=== PATIENT | male | born 1965 | race Caucasian/White ===

== ENCOUNTER 2024-07-10 22:02 | Emergency (ER) | payer OTHER, SELFPAY ==
--- NOTE | 2024-07-10 22:00 | DI.CT_ITS ---
Exam(s) CT THORAX ABDOMEN CTA EXAM: CT THORAX ABDOMEN CTA CLINICAL HISTORY: sharp CP radiating to back ?dissection ?pancreatit. TECHNIQUE: Imaging Protocol: Axial computed tomography images with coronal and sagittal reformatted images were created and reviewed CONTRAST MATERIAL: Intravenous: Omnipaque 350 Contrast volume:100 ml Oral: None COMPARISON: No exams were available for comparison FINDINGS: CHEST: AORTA: Diameter of the ascending thoracic aorta is upper normal. There is no evidence of aortic diss ection nor pericardial effusion. Mild coronary artery calcification noted. Incidentally noted is in dependent origin of the left vertebral artery off the aortic arch instead of typical origin off the l eft subclavian artery. The diameter of the abdominal aorta is within normal limits. Also no evidenc e of dissection in the abdominal aorta.. Partially included common iliac arteries exhibit no dissect ion flaps. No significant stenosis in the renal arteries nor in the celiac and superior mesenteric a rteries. Inferior mesenteric artery is patent. LUNGS: There is a small nodular density measuring 4 mm associated with the most superior aspect of th e left major fissure. A small 2 millimeter benign-appearing fissure related nodule on the left side is also noted.. On the right side there is a small nodular infiltrate measuring 6 mm in the right up per lobe noted and another similar size nodular infiltrate in the superior segment of the right lower lobe. Another is seen in the right middle lobe anteriorly. There are no pleural effusions. MEDIASTINUM: There is no hilar nor mediastinal adenopathy. CARDIAC: Heart size is normal. There is no pericardial effusion. Mild coronary artery calcification noted. ABDOMEN There is no ascites. No ischemic appearing bowel loops. LIVER: There are no obvious focal hepatic lesions nor dilatation of intrahepatic ducts. GALLBLADDER/BILIARY: No obvious gallbladder pathology. CBD is not dilated. PANCREAS: Pancreatic tail is slightly prominent and appears edematous. SPLEEN: Spleen size is upper normal. Spleen enhances heterogeneously given the arterial phase inject ion. However, there does appear to be some streaking in the fat around the inferior half of the sple en. In addition, there is some confluent hypodensity in the inferior aspect of the spleen in this re gion. Cannot assess for thrombosis of the splenic vein as this is an arterial phase only study. ADRENALS: There are no significant adrenal masses. KIDNEYS: No cysts evident. No calculi nor hydronephrosis. No solid renal masses. ABDOMINAL AORTA: The abdominal aorta is not enlarged. LYMPH NODES: There is no retroperitoneal nor para-aortic adenopathy. No obvious mesenteric masses. ABDOMINAL WALL: No evidence of significant anterior abdominal wall hernia. GI: There is no evidence of bowel obstruction. No free air. OSSEOUS: No significant osseous lesions. IMPRESSION: 1. No evidence of aortic dissection nor pericardial effusion. The ascending thoracic aorta diameter is upper normal 2. Abnormally hypodense pancreatic tail with surrounding fat stranding as well as possible involvemen t of the adjacent spleen. Suspect pancreatitis. Close follow-up recommended. Please note that this was an arterial phase only study (as requested) and us further conventional contrast infused CT scan is warranted, given the above findings.. 3. Please note the pelvis was not scanned on this study. 4. RADIATION DOSE DELIVERED: 520.65mGy.cm Total DLP DATA REPOSITORY: All CT scans at this facility are submitted to the National Radiology Data Registry (NRDR) Dose Index Registry (DIR) with the [employer] (A[employer]). RADIATION OPTIMIZATION: All CT scans at this facility use at least one of these dose optimization te chniques: automated exposure control; mA and/or kV adjustment per patient size (includes targeted exa ms where dose is matched to clinical indication); or iterative reconstruction.
--- NOTE | 2024-07-10 22:00 | RT.EKG_ITS ---
APPROVED REPORT Exam: Resting ECG Reason for Exam: chest pain Patient Location: E HR:52 bpm ECG Measurements Heart Rate 52 AXIS ME 150 P 55 QRSd 106 QRS -9 QT 452 T 16 QTc 421 Conclusion Sinus bradycardia...rate< 60 Probable left atrial enlargement...P >50mS, <-0.10mV V1 appropriate intervals no ST segment or T wave abnormalities to suggest occlusive IA
[2024-07-10 22:05] VITALS: PULSE 50; RESP 18; O2SAT 100
[2024-07-10 22:11] VITALS: BP 178/96; PULSE 47; PULSE 50; RESP 16; O2SAT 100
[2024-07-10 22:12] VITALS: BP 178/96; RESP 18; O2SAT 100
[2024-07-10 22:16] VITALS: BP 184/105; PULSE 47; RESP 15
[2024-07-10 22:25] LABS: BE (Venous) 3 mmol/L (-2-3); HCO3 (Venous) 28 mmol/L (23-28); Lactate 1.8 mmol/L (0.6-1.4); O2 Sat (Venous) 62 %; TCO2 (Venous) 25 mmol/L (24-29); pCO2 (Venous) 44 mmHg (41-51); pH (Venous) 7.41 (7.31-7.41); pO2 (Venous) 33 mmHg
[2024-07-10 22:26] LABS: Abs Immature Grans 0.03 10^3/uL (0.0-0.06); Absolute Basophil Count 0.11 10^3/uL (0.0-0.2); Absolute Eosinophil Count 0.63 10^3/uL (0.0-0.7); Absolute Lymphocyte Count 2.27 10^3/uL (1.2-3.4); Absolute Monocyte Count 1.28 10^3/uL (0.1-0.8); Absolute Neutrophil Count 8.23 10^3/uL (1.2-6.7); Basophils % 0.9 %; HCT 40.1 % (40.0-50.0); HGB 12.9 g/dL (13.5-17.5); Immature Grans % 0.2 %; Lymphocytes % 18.1 %; MCH 27.3 pg (27.0-33.0); MCHC 32.2 % (32.0-36.0); MCV 85 fL (80-95); Monocytes % 10.2 %; Neutrophils % 65.6 %; Platelet Count 186 10^3/uL (130-400); RBC 4.73 10^6/uL (4.36-5.78); RDW 13.8 % (11.8-14.1); RDW-SD 42.6 fL; WBC 12.55 10^3/uL (4.4-10.8)
[2024-07-10] MEDS: fentaNYL 100 MCG/2 ML VIAL 75 MCG IVP (22:28)
[2024-07-10] MEDS: ACETAMINOPHEN 1,000 MG/100 ML BAG 400 MG IVPB (22:28)
[2024-07-10] MEDS: Ondansetron 4 MG/2 ML VIAL IVP (22:28)
[2024-07-10] MEDS: Normal Saline - Diluent 50 ML VIAL IJ (22:35)
[2024-07-10] MEDS: Omnipaque 350 MG/ML 100 ML BTL IJ (22:36)
[2024-07-10 22:49] LABS: ALT 65 U/L (16-63); AST 47 U/L (15-37); Albumin 3.2 g/dL (3.4-5.0); Alkaline Phosphatase 298 U/L (46-116); Anion Gap 7.6 mmol/L (3-11); BUN 12 mg/dL (7-18); Bilirubin, Total 1.19 mg/dL (0.2-1.0); CO2 28.4 mmol/L (21.0-32.0); CREATININE 1.1 mg/dL (0.70-1.30); Calcium 9.2 mg/dL (8.5-10.1); Chloride 103 mmol/L (98-107); Estimated GFR 77.33 (mL/min/1.73m2); Glucose 137 mg/dL (74-106); Lipase 70 U/L (16-77); NT-proBNP 170 pg/mL (<300); Potassium 3.6 mmol/L (3.5-5.1); Sodium 139 mmol/L (136-145); Total Protein 8.2 g/dL (6.4-8.2); Troponin I 74 ng/L (<or=76)
[2024-07-10] MEDS: fentaNYL 100 MCG/2 ML VIAL 50 MCG IVP (23:07)
--- NOTE | 2024-07-10 23:48 | DI.VRAD_ITS ---
PROCEDURE INFORMATION: Exam: CTA Chest With Contrast CTA Abdomen With Contrast Exam date and time: 07/10/2024 10:34 PM Age: 58 years old Clinical indication: Pain; Other: Sharp cp radiating to back; Patient HX: PT sts pancreatic biopsy x 2 days ago; Additional info: Sharp cp radiating to back ? dissection ? pancreatit. TECHNIQUE: Imaging protocol: Computed tomographic angiography of the chest with contrast. Exam focused on the arteries. Computed tomographic angiography of the abdomen with contrast. Exam focused on the arteries. 3D rendering (Not supervised by radiologist): MIP and/or 3D reconstructed images were created by the technologist. Contrast material: OMNI 350; Contrast volume: 100 ml; Contrast route: INTRAVENOUS (IV); COMPARISON: No relevant prior studies available. FINDINGS: VASCULATURE: Pulmonary arteries: Normal. No pulmonary emboli. Aorta: No aortic aneurysm. No aortic dissection. Celiac trunk and mesenteric arteries: No occlusion or significant stenosis. Renal arteries: No occlusion or significant stenosis. CHEST: Lungs: Ground-glass infiltrates in the right upper lobe, superior segment of the right lower lobe and right middle lobe. Pleural spaces: Unremarkable. No pneumothorax. No pleural effusion. Heart: Unremarkable. No cardiomegaly. No pericardial effusion. ABDOMEN AND PELVIS: Liver: Geographic fatty infiltration of the liver. Gallbladder and biliary ducts: Unremarkable. No calcified stones. No ductal dilation. Pancreas: Hypodense/hypoenhancing fullness in the tail of the pancreas measuring 5.1 x 2.4 cm with minimal surrounding fat stranding. Spleen: Fat stranding surrounding the inferior aspect of the spleen. Adrenal glands: Unremarkable. No mass. Kidneys: Unremarkable kidneys. No solid mass. No hydronephrosis. Stomach and bowel: Unremarkable. No obstruction. No mucosal thickening. Intraperitoneal space: Unremarkable. No free air. No significant fluid collection. Lymph nodes: Unremarkable. No enlarged lymph nodes. Bones/joints: Small multilevel anterior thoracic spine osteophytes mild curvature of the lower thoracic spine convex to the left. Soft tissues: Unremarkable. IMPRESSION: 1. No aortic dissection. 2. Hypodense/hypoenhancing tail of the pancreas with surrounding fat stranding as well as perisplenic fat stranding to be correlated with recent biopsy. Early pancreatitis can have similar appearance. Dictated and Authenticated by: Edwin Toro MD. Ordering:SUSY Crump MD
[2024-07-11] VITALS (43 sets, daily range): BP systolic 130–211; BP diastolic 62–109; PULSE 43–64; RESP 7–20; TEMP 36.8; O2SAT 98–100
[2024-07-11 00:14] LABS: Troponin I 64 ng/L (<or=76)
--- NOTE | 2024-07-11 00:15 | W.ED.GENAD ---
Discharge Plan Disposition Patient Disposition: Transfer-Acute Inpatient Care Specific Acute Inpt Facility: [facility] Condition: Stable Discharge Details Chief Complaint: Chest Pain Clinical Impression: Pancreatitis Primary Care Provider: None,None ED Provider: Alisia Armendariz Home Meds and New Rx's Prescriptions: No Action Xarelto 20 mg tablet 20 mg PO QDAY Rx Instructions: must administer with evening meal zolpidem [Ambien] 5 mg tablet 5 mg PO QHS PRN Rx Instructions: may repeat once if no response in 30-60 minutes HPI General Mode of arrival: ambulatory. Date/Time Provider Initiated Documentation: 07/10/24 22:06. Limitations to Documentation: no limitations. Information obtained by: patient. HPI Narrative: 58yo M with hx of recently (3 weeks ago) diagnosed pancreatic mass, s/p endoscopy with pancreatic biopsy on 07/08/24, presenting with severe right sided upper abdominal/chest pain radiating into his back. Symptoms started around 9pm and have been worsening since then. Pain is sharp, worse with movement; no alleviating factors. No shortness of breath, lightheadedness, or syncope. Associated nausea, no vomiting. Has never felt pain like this before. No history of cardiac disease, no family history of early cardiac disease. Has had a pulmonary embolism in the past and is on anticoagulation; held for procedure and resumed today. Otherwise in his usual state of health with no fevers, chills, rash, dysuria, hematuria, numbness, focal weakness, LE edema, or other concerns. Related Data Home Medications ?Medication ?Instructions ?Recorded ?Confirmed rivaroxaban 20 mg tablet (Xarelto) 20 mg PO QDAY 07/11/24 07/11/24 zolpidem 5 mg tablet (Ambien) 5 mg PO QHS PRN 07/11/24 07/11/24 Allergies Allergy/AdvReac Type Severity Reaction Status Date / Time No Known Allergies Allergy Unverified 07/10/24 22:11 General Stated Complaint: Chest Pain NORBERT: 3 Review of Systems Narrative: see HPI Exam Narrative Exam Narrative: General: Alert, appears to be in pain Head: Normocephalic, atraumatic Neck: Trachea midline, ?Neck supple. ENT: ?MMM.? No oropharygeal lesions or exudate. Cardiac: ?RRR, no murmurs appreciated. 2+ radial pulses symmetric bilaterally. Resp: No respiratory distress. CTAB. Abd: ?Soft, non-distended, epigastrium and RUQ TTP with guarding. Unable to assess Epps's. : ?No suprapubic tenderness. No CVA tenderness. Extremities: ?No deformities.? No peripheral edema. Neurologic: GCS 15. ? Moves all extremities freely against gravity Course Vital Signs Vital signs: Vital Signs Pulse 50 L 07/10/24 22:05 Respiratory Rate 18 07/10/24 22:05 Pulse Oximetry 100 07/10/24 22:05 Pulse 47 L 07/10/24 22:16 Pulse 47 L 07/10/24 22:16 Respiratory Rate 15 07/10/24 22:16 Respiratory Effort Normal 07/10/24 22:12 Respiratory Depth Normal 07/10/24 22:12 Respiratory Pattern Normal 07/10/24 22:12 Blood Pressure 184/105 H 07/10/24 22:16 Blood Pressure Mean 136 07/10/24 22:16 Pulse Oximetry 100 07/10/24 22:12 Oxygen Delivery Method Room Air 07/10/24 22:12 Oxygen Flow Rate 0 07/10/24 22:12 Lab/Test Results Lab/Test Results: Laboratory Tests Range/Units 07/10/24 07/10/24 22:20 23:52 WBC (4.4-10.8) 10^3/uL 12.55 H RBC (4.36-5.78) 10^6/uL 4.73 Hgb (13.5-17.5) g/dL 12.9 L Hct (40.0-50.0) % 40.1 MCV (80-95) fL 85 MCH (27.0-33.0) pg 27.3 MCHC (32.0-36.0) % 32.2 RDW (11.8-14.1) % 13.8 Plt Count (130-400) 10^3/uL 186 MPV (8.0-11.0) fL 11.0 Immature Gran % % 0.2 Neutrophils % % 65.6 Lymphocytes % % 18.1 Monocytes % % 10.2 Eosinophils % % 5.0 Basophils % % 0.9 Nucleated RBC % (0.0-0.3) % 0.0 Absolute Neutrophils (1.2-6.7) 10^3/uL 8.23 H Absolute Lymphocytes (1.2-3.4) 10^3/uL 2.27 Absolute Monocytes (0.1-0.8) 10^3/uL 1.28 H Absolute Eosinophils (0.0-0.7) 10^3/uL 0.63 Absolute Basophils (0.0-0.2) 10^3/uL 0.11 VBG pH (7.31-7.41) 7.41 VBG pCO2 (41-51) mmHg 44 VBG pO2 mmHg 33 VBG HCO3 (23-28) mmol/L 28 VBG Total CO2 (24-29) mmol/L 25 VBG O2 Saturation % 62 VBG Base Excess (-2-3) mmol/L 3 VBG Lactate (0.6-1.4) mmol/L 1.8 H Sodium (136-145) mmol/L 139 Potassium (3.5-5.1) mmol/L 3.6 Chloride (98-107) mmol/L 103 Carbon Dioxide (21.0-32.0) mmol/L 28.4 Anion Gap (3-11) mmol/L 7.6 BUN (7-18) mg/dL 12 Creatinine (0.70-1.30) mg/dL 1.1 Est GFR (CKD-EPI 2020) (mL/min/1.73m2) 77.33 Glucose (74-106) mg/dL 137 H Calcium (8.5-10.1) mg/dL 9.2 Magnesium (1.8-2.4) mg/dL 2.0 Total Bilirubin (0.2-1.0) mg/dL 1.19 H AST (15-37) U/L 47 H ALT (16-63) U/L 65 H Alkaline Phosphatase (46-116) U/L 298 H Troponin I (<or=76) ng/L 74 64 NT-Pro-B Natriuret Pep (<300) pg/mL 170 Total Protein (6.4-8.2) g/dL 8.2 Albumin (3.4-5.0) g/dL 3.2 L Lipase (16-77) U/L 70 Medical Decision Making 58yo M with hx of recently (3 weeks ago) diagnosed pancreatic mass, s/p endoscopy with pancreatic biopsy on 07/08/24, presenting with severe right sided upper abdominal/chest pain radiating into his back. No shortness of breath, tachycardia, or hypoxia to suggest pulmonary embolism (though he does have a hx of this and held his AC for the procedure, resumed today). In distress/pain on exam, guarding epigastrium and RUQ. EKG on arrival sinus bradycardia, no ST segment or T wave abnormalitites to suggest occlusive OR. Will treat symptoms initially with fentanyl, zofran, IV tylenol. Labs reviewed as below, CBC with mild leukocytosis (12.5) and borderline anemia (12.9), CMP with elevated LFTS bili 1.2, slight elevations in AST & ALT, ALP 298, lipase in normal range. Initial troponin normal, BNP normal, VBG & lactate reassuring. CTA c/a/p independently reviewed, no clear aortic dissection or pulmonary embolism on my view, some stranding around pancreas (? post-operative vs pancreatitis). Radiology read below. Repeat troponins reassuring. Started on mIVF. Consulted with [facility] who performed procedure, advised medical management for pancreatitis, presentation thought to be consistent with post-op pancreatitis, would like pt transferred to [facility] on medicine service. Discussed wtih Dr. Cavazos medicine; accepted to [facility]. Unable to identify appropriate transport overnight; will hold in the ED until the morning when EMS is available. Imaging Data Radiologic Study: Imaging: CT Scan Radiologist's impression: IMPRESSION: 1. No aortic dissection. 2. Hypodense/hypoenhancing tail of the pancreas with surrounding fat stranding as well as perisplenic fat stranding to be correlated with recent biopsy. Early pancreatitis can have similar appearance. Lab Data Lab results reviewed: Yes I reviewed the patient's lab results. Labs: Laboratory Tests Range/Units 07/10/24 07/10/24 22:20 23:52 WBC (4.4-10.8) 10^3/uL 12.55 H RBC (4.36-5.78) 10^6/uL 4.73 Hgb (13.5-17.5) g/dL 12.9 L Hct (40.0-50.0) % 40.1 MCV (80-95) fL 85 MCH (27.0-33.0) pg 27.3 MCHC (32.0-36.0) % 32.2 RDW (11.8-14.1) % 13.8 Plt Count (130-400) 10^3/uL 186 MPV (8.0-11.0) fL 11.0 Immature Gran % % 0.2 Neutrophils % % 65.6 Lymphocytes % % 18.1 Monocytes % % 10.2 Eosinophils % % 5.0 Basophils % % 0.9 Nucleated RBC % (0.0-0.3) % 0.0 Absolute Neutrophils (1.2-6.7) 10^3/uL 8.23 H Absolute Lymphocytes (1.2-3.4) 10^3/uL 2.27 Absolute Monocytes (0.1-0.8) 10^3/uL 1.28 H Absolute Eosinophils (0.0-0.7) 10^3/uL 0.63 Absolute Basophils (0.0-0.2) 10^3/uL 0.11 VBG pH (7.31-7.41) 7.41 VBG pCO2 (41-51) mmHg 44 VBG pO2 mmHg 33 VBG HCO3 (23-28) mmol/L 28 VBG Total CO2 (24-29) mmol/L 25 VBG O2 Saturation % 62 VBG Base Excess (-2-3) mmol/L 3 VBG Lactate (0.6-1.4) mmol/L 1.8 H Sodium (136-145) mmol/L 139 Potassium (3.5-5.1) mmol/L 3.6 Chloride (98-107) mmol/L 103 Carbon Dioxide (21.0-32.0) mmol/L 28.4 Anion Gap (3-11) mmol/L 7.6 BUN (7-18) mg/dL 12 Creatinine (0.70-1.30) mg/dL 1.1 Est GFR (CKD-EPI 2020) (mL/min/1.73m2) 77.33 Glucose (74-106) mg/dL 137 H Calcium (8.5-10.1) mg/dL 9.2 Magnesium (1.8-2.4) mg/dL 2.0 Total Bilirubin (0.2-1.0) mg/dL 1.19 H AST (15-37) U/L 47 H ALT (16-63) U/L 65 H Alkaline Phosphatase (46-116) U/L 298 H Troponin I (<or=76) ng/L 74 64 NT-Pro-B Natriuret Pep (<300) pg/mL 170 Total Protein (6.4-8.2) g/dL 8.2 Albumin (3.4-5.0) g/dL 3.2 L Lipase (16-77) U/L 70 Quality:SDOH Health Related Social Needs: No Data to Display PFSH All Active Problems (Updated 07/11/24 @ 03:05 by Alisia Armendariz MD) Pancreatitis (Chronic) Social History Smoking/Tobacco Use Status: Never Smoking risk assessment performed?: Yes Alcohol Intake: never Substance use type: does not use
[2024-07-11] MEDS: Aspirin 81 MG CHEW 324 MG CH (00:26)
[2024-07-11] MEDS: fentaNYL 100 MCG/2 ML VIAL 50 MCG IVP ×5 (01:24→08:09)
[2024-07-11 01:40] LABS: Troponin I 60 ng/L (<or=76)
[2024-07-11] MEDS: Normal Saline 1,000 ML 150 ML IV (02:01)
[2024-07-11] MEDS: Ondansetron 4 MG/2 ML VIAL (08:22)
== END 2024-07-11 08:27 | disposition short-term general hospital (02) ==
PROVIDERS: Emergency Provider Student in an Organized Health Care Education/Training Program
DX: R07.9 Chest pain, unspecified (principal); R10.11 Right upper quadrant pain; K85.90 Acute pancreatitis without necrosis or infection, unspecified; D72.829 Elevated white blood cell count, unspecified; D64.9 Anemia, unspecified
CPT/HCPCS: 36415; 71275; 74175; 80053; 82805; 83690; 93005; 96365; 96375; 96376; 99285; 83605; 83735; 83880; 84484; 85025; 93010; J0131; J2405; J3010; J3490

== ENCOUNTER 2024-08-05 11:04 | Outpatient (CLI) | payer OTHER, SELFPAY ==
[2024-08-05 11:25] LABS: Abs Immature Grans 0.02 10^3/uL (0.0-0.06); Absolute Basophil Count 0.09 10^3/uL (0.0-0.2); Absolute Eosinophil Count 0.24 10^3/uL (0.0-0.7); Absolute Lymphocyte Count 1.11 10^3/uL (1.2-3.4); Absolute Monocyte Count 0.66 10^3/uL (0.1-0.8); Absolute Neutrophil Count 5.53 10^3/uL (1.2-6.7); Basophils % 1.2 %; Eosinophils % 3.1 %; HCT 35.9 % (40.0-50.0); HGB 11.4 g/dL (13.5-17.5); Immature Grans % 0.3 %; Lymphocytes % 14.5 %; MCH 26.6 pg (27.0-33.0); MCHC 31.8 % (32.0-36.0); MCV 84 fL (80-95); MPV 10.3 fL (8.0-11.0); Monocytes % 8.6 %; Neutrophils % 72.3 %; Platelet Count 246 10^3/uL (130-400); RBC 4.29 10^6/uL (4.36-5.78); RDW 14.7 % (11.8-14.1); RDW-SD 44.5 fL; WBC 7.65 10^3/uL (4.4-10.8)
[2024-08-05 11:47] LABS: ALT 66 U/L (16-63); AST 94 U/L (15-37); Albumin 2.7 g/dL (3.4-5.0); BUN 13 mg/dL (7-18); Bilirubin, Total 1.32 mg/dL (0.2-1.0); Calcium 9.1 mg/dL (8.5-10.1); Chloride 103 mmol/L (98-107); Glucose 94 mg/dL (74-106); Potassium 4.3 mmol/L (3.5-5.1); Sodium 142 mmol/L (136-145); Total Protein 8.3 g/dL (6.4-8.2)
[2024-08-05 11:48] LABS: Alkaline Phosphatase 1040 U/L (46-116)
[2024-08-06 15:24] LABS: CA 19-9 >70000 U/mL (<35)
== END 2024-08-05 11:05 | disposition home or self-care (01) ==
LOC: LBO 11:05
PROVIDERS: Visit Provider Internal Medicine Hematology & Oncology
DX: C25.9 Malignant neoplasm of pancreas, unspecified (principal); C78.7 Secondary malignant neoplasm of liver and intrahepatic bile duct
CPT/HCPCS: 36415; 80053; 85025; 86301

== ENCOUNTER 2024-08-21 03:24 | Outpatient (CLI) | payer OTHER, SELFPAY ==
[2024-08-21 10:43] LABS: Abs Immature Grans 0.04 10^3/uL (0.0-0.06); Absolute Basophil Count 0.07 10^3/uL (0.0-0.2); Absolute Eosinophil Count 0.01 10^3/uL (0.0-0.7); Absolute Lymphocyte Count 1.18 10^3/uL (1.2-3.4); Absolute Monocyte Count 0.55 10^3/uL (0.1-0.8); Absolute Neutrophil Count 5.58 10^3/uL (1.2-6.7); Basophils % 0.9 %; Eosinophils % 0.1 %; HCT 26.7 % (40.0-50.0); HGB 8.6 g/dL (13.5-17.5); Immature Grans % 0.5 %; Lymphocytes % 15.9 %; MCH 28.5 pg (27.0-33.0); MCHC 32.2 % (32.0-36.0); MCV 88 fL (80-95); MPV 11.2 fL (8.0-11.0); Monocytes % 7.4 %; Neutrophils % 75.2 %; Nucleated RBC 1.1 % (0.0-0.3); Platelet Count 155 10^3/uL (130-400); RBC 3.02 10^6/uL (4.36-5.78); RDW 22.6 % (11.8-14.1); RDW-SD 69.9 fL; WBC 7.43 10^3/uL (4.4-10.8)
[2024-08-21 11:13] LABS: Anisocytosis 2+; Diff Comment Diff Reviewed; Hypochromasia 2+; Poikilocytes 2+
[2024-08-21 11:30] LABS: ALT 36 U/L (16-63); AST 58 U/L (15-37); Albumin 2.6 g/dL (3.4-5.0); Alkaline Phosphatase 614 U/L (46-116); Anion Gap 4.3 mmol/L (3-11); BUN 10 mg/dL (7-18); Bilirubin, Total 1.68 mg/dL (0.2-1.0); CO2 29.7 mmol/L (21.0-32.0); CREATININE 0.9 mg/dL (0.70-1.30); Calcium 9.1 mg/dL (8.5-10.1); Chloride 105 mmol/L (98-107); Estimated GFR 98.38 (mL/min/1.73m2); Glucose 193 mg/dL (74-106); Potassium 4.4 mmol/L (3.5-5.1); Sodium 139 mmol/L (136-145); Total Protein 7.2 g/dL (6.4-8.2)
[2024-08-22 12:38] LABS: CA 19-9 >70000 U/mL (<35)
== END 2024-08-21 03:25 | disposition home or self-care (01) ==
LOC: LBO 03:25
PROVIDERS: Visit Provider Internal Medicine Hematology & Oncology
DX: C25.9 Malignant neoplasm of pancreas, unspecified (principal); C78.7 Secondary malignant neoplasm of liver and intrahepatic bile duct
CPT/HCPCS: 36415; 80053; 85025; 86301

== ENCOUNTER 2024-09-18 04:07 | Outpatient (CLI) | payer OTHER, SELFPAY ==
[2024-09-18 10:10] LABS: Abs Immature Grans 0.04 10^3/uL (0.0-0.06); Absolute Monocyte Count 0.62 10^3/uL (0.1-0.8); Basophils % 0.8 %; Eosinophils % 1.1 %; HCT 36.2 % (40.0-50.0); HGB 11.5 g/dL (13.5-17.5); Immature Grans % 0.3 %; Lymphocytes % 5.7 %; MCH 27.6 pg (27.0-33.0); MCHC 31.8 % (32.0-36.0); MCV 87 fL (80-95); MPV 11.3 fL (8.0-11.0); Monocytes % 5.1 %; Platelet Count 210 10^3/uL (130-400); RBC 4.16 10^6/uL (4.36-5.78); RDW 19.5 % (11.8-14.1); RDW-SD 62.2 fL; WBC 12.18 10^3/uL (4.4-10.8)
[2024-09-18 10:11] LABS: Absolute Eosinophil Count 0.13 10^3/uL (0.0-0.7); Absolute Lymphocyte Count 0.69 10^3/uL (1.2-3.4)
[2024-09-18 10:32] LABS: ALT 50 U/L (16-63); AST 82 U/L (15-37); Albumin 2.8 g/dL (3.4-5.0); Alkaline Phosphatase 820 U/L (46-116); Anion Gap 7.2 mmol/L (3-11); BUN 14 mg/dL (7-18); CO2 27.8 mmol/L (21.0-32.0); CREATININE 0.9 mg/dL (0.70-1.30); Calcium 9.2 mg/dL (8.5-10.1); Chloride 103 mmol/L (98-107); Estimated GFR 98.38 (mL/min/1.73m2); Glucose 180 mg/dL (74-106); Potassium 3.9 mmol/L (3.5-5.1); Sodium 138 mmol/L (136-145); Total Protein 8.8 g/dL (6.4-8.2)
[2024-09-19 12:18] LABS: CA 19-9 >70000 U/mL (<35)
== END 2024-09-18 04:08 | disposition home or self-care (01) ==
LOC: LBO 04:07
PROVIDERS: Visit Provider Internal Medicine Hematology & Oncology
DX: C25.9 Malignant neoplasm of pancreas, unspecified (principal); C78.7 Secondary malignant neoplasm of liver and intrahepatic bile duct
CPT/HCPCS: 36415; 80053; 85025; 86301